=== PATIENT | female | born 1980 | race Caucasian/White ===

== ENCOUNTER 2022-08-29 12:28 | Emergency (ER) | payer OTHER ==
[2022-08-29] MEDS ORDERED: Ketorolac Tromethamine 30 MG/ML VIAL ONE (13:53)
== END 2022-08-29 14:05 | disposition home or self-care (01) ==
LOC: CSHERS 12:28
DX: M54.50 Low back pain, unspecified (principal)
CPT/HCPCS: 96372; 99282; J1885